=== PATIENT | female | born 1960 | race Caucasian/White ===

== ENCOUNTER 2023-11-02 09:42 | Outpatient (CLI) | payer BC ==
[2023-11-02 11:34] LABS: Hematocrit 42.5 % (34.9-44.5); Hemoglobin 14.6 g/dL (12.0-15.5); Mean Corpuscular HGB CONC 34.4 g/dL (32.0-36.0); Mean Corpuscular Hemoglobin 31.1 pg (27.0-33.0); Mean Corpuscular Volume 90.6 fL (81.6-98.3); Mean Platelet Volume 9.5 fL (7.4-10.4); Platelet Count 230 10x3/uL (150-450); RBC Distribution Width 12.8 % (11.5-14.5); Red Blood Cell (RBC) Count 4.69 10x6/uL (3.90-5.03); White Blood Cell (WBC) Count 6.5 10x3/uL (3.5-10.5)
[2023-11-02 11:50] LABS: Anion Gap 15 mmol/L (10-20); BUN (Urea Nitrogen) 16 mg/dL (9.8-20.1); Calc. Creatinine Clearance 0 mL/min (70-130); Calcium 9.9 mg/dL (7.8-10.44); Carbon Dioxide 27 mmol/L (23-31); Chloride 102 mmol/L (98-107); Estimated GFR 95; Glucose 161 mg/dL (80-115); Potassium 3.7 mmol/L (3.5-5.1); Sodium 140 mmol/L (136-145)
== END 2023-11-02 09:43 | disposition home or self-care (01) ==
LOC: CSHLAB 09:42
PROVIDERS: ATTEND Podiatrist Foot & Ankle Surgery
DX: Z01.818 Encounter for other preprocedural examination (principal); M67.472 Ganglion, left ankle and foot; M25.572 Pain in left ankle and joints of left foot
CPT/HCPCS: 80048; 85027; 93005; 93010

== ENCOUNTER 2023-11-09 09:45 | Day surgery (SDC) | payer BC ==
[2023-11-02 10:46] VITALS: BMI 44.8
[2023-11-09] MEDS ORDERED: CEFAZOLIN 2 GM VIAL ONE (11:16)
[2023-11-09] MEDS ORDERED: Bupivacaine PF 0.5% 30 ML VIAL ONE (11:17)
[2023-11-09] MEDS ORDERED: EPINEPHrine 1 MG/ML VIAL ONE (11:31)
[2023-11-09] MEDS ORDERED: PROPOFOL 40 ML ONE (11:53)
[2023-11-09] MEDS ORDERED: fentaNYL 50 mcg/mL 1 mL Vial ONE (11:53)
[2023-11-09] MEDS ORDERED: Lidocaine 1% PF 5 ML VIAL ONE (11:54)
[2023-11-09] MEDS ORDERED: Midazolam HCl 2 mg/2 ml Vial ONE (11:54)
[2023-11-09] MEDS ORDERED: Ondansetron PF 4 MG/2 ML Vial ONE (11:54)
[2023-11-09] MEDS ORDERED: Dexamethasone 4 mg/ml Vial ONE (11:54)
[2023-11-09] MEDS ORDERED: ePHEDrine Sulfate 50 MG/10 ML VIAL ONE (12:19)
== END 2023-11-09 14:02 | disposition home or self-care (01) ==
LOC: CSHSDC 09:45
PROVIDERS: ATTEND Podiatrist Foot & Ankle Surgery
PROC: 0JBP0ZZ Excision of Left Lower Leg Subcutaneous Tissue and Fascia, Open Approach (ICD-10-PCS; principal; 2023-11-09)
DX: L72.8 Other follicular cysts of the skin and subcutaneous tissue (principal); Z88.8 Allergy status to other drugs, medicaments and biological substances
CPT/HCPCS: 88305; J0171; J0665; J1100; J2250; J2405; J2704; J3010

== ENCOUNTER 2024-01-11 09:11 | Outpatient (CLI) | payer BC | END 2024-01-11 09:12 | disposition home or self-care (01) | LOC: CSHWCC 09:11 | PROVIDERS: ATTEND Nurse Practitioner Family | DX: I87.312 Chronic venous hypertension (idiopathic) with ulcer of left lower extremity (principal); L97.322 Non-pressure chronic ulcer of left ankle with fat layer exposed | CPT/HCPCS: 11042; 99213; G0463 ==

== ENCOUNTER 2024-02-08 14:38 | Outpatient (CLI) | payer OTHER | END 2024-02-08 14:39 | disposition home or self-care (01) | LOC: CSHWCC 14:38 | PROVIDERS: ATTEND Nurse Practitioner Family | DX: I87.312 Chronic venous hypertension (idiopathic) with ulcer of left lower extremity (principal); L97.322 Non-pressure chronic ulcer of left ankle with fat layer exposed | CPT/HCPCS: 11042 ==

== ENCOUNTER 2024-02-15 15:14 | Outpatient (CLI) | payer OTHER | END 2024-02-15 15:15 | disposition home or self-care (01) | LOC: CSHWCC 15:14 | PROVIDERS: ATTEND Nurse Practitioner Family | DX: I87.312 Chronic venous hypertension (idiopathic) with ulcer of left lower extremity (principal); L97.322 Non-pressure chronic ulcer of left ankle with fat layer exposed | CPT/HCPCS: 99213; G0463 ==

== ENCOUNTER 2024-02-22 15:08 | Outpatient (CLI) | payer OTHER | END 2024-02-22 15:09 | disposition home or self-care (01) | LOC: CSHWCC 15:08 | PROVIDERS: ATTEND Nurse Practitioner Family | DX: I87.312 Chronic venous hypertension (idiopathic) with ulcer of left lower extremity (principal); L97.322 Non-pressure chronic ulcer of left ankle with fat layer exposed | CPT/HCPCS: 11042 ==

== ENCOUNTER 2024-02-29 15:04 | Outpatient (CLI) | payer OTHER | END 2024-02-29 15:05 | disposition home or self-care (01) | LOC: CSHWCC 15:04 | PROVIDERS: ATTEND Nurse Practitioner Family | DX: I87.312 Chronic venous hypertension (idiopathic) with ulcer of left lower extremity (principal); L97.322 Non-pressure chronic ulcer of left ankle with fat layer exposed | CPT/HCPCS: 11042 ==

== ENCOUNTER 2024-03-07 15:34 | Outpatient (CLI) | payer OTHER | END 2024-03-07 15:35 | disposition home or self-care (01) | LOC: CSHWCC 15:34 | PROVIDERS: ATTEND Nurse Practitioner Family | DX: I87.312 Chronic venous hypertension (idiopathic) with ulcer of left lower extremity (principal); L97.322 Non-pressure chronic ulcer of left ankle with fat layer exposed | CPT/HCPCS: 11042 ==

== ENCOUNTER 2024-03-18 15:30 | Outpatient (CLI) | payer OTHER | END 2024-03-18 15:31 | disposition home or self-care (01) | LOC: CSHWCC 15:30 | PROVIDERS: ATTEND Nurse Practitioner Family | DX: I87.312 Chronic venous hypertension (idiopathic) with ulcer of left lower extremity (principal); L97.322 Non-pressure chronic ulcer of left ankle with fat layer exposed | CPT/HCPCS: 99212; G0463 ==

== ENCOUNTER 2024-12-26 15:11 | Outpatient (CLI) | payer OTHER | END 2024-12-26 15:12 | disposition home or self-care (01) | LOC: CSHMAMMO 15:11 | PROVIDERS: ATTEND Student in an Organized Health Care Education/Training Program | DX: Z12.31 Encounter for screening mammogram for malignant neoplasm of breast (principal) | CPT/HCPCS: 77063; 77067 ==